=== PATIENT | female | born 1935 | race African-American/Black ===

== ENCOUNTER 2019-07-13 08:18 | Emergency (ER) | payer OTHER ==
[~2019-07-13] VITALS: Ht 170.2 cm; Wt 73.0 kg
[2019-07-13 09:04] LABS: BASOPHILS % 1.2 % (0.0-2.0); EOSINOPHILS % 2.9 % (0.0-5.0); HEMOGLOBIN. 11.9 g/dL (12.0-16.0); LYMPHOCYTES % 26.1 % (20.0-50.0); MEAN CORPUSCULAR HEMOGLOBIN 28.2 pg (28.0-32.0); MEAN CORPUSCULAR VOLUME 85.1 fL (81.0-99.0); MEAN PLATELET VOLUME 7.5 fl (7.4-10.4); MONOCYTES % 6.3 % (2.0-8.0); NEUTROPHILS % 63.5 % (40.0-76.0); PLATELET 121 x1000/uL (130-400); RED BLOOD CELL COUNT 4.23 mill/uL (4.2-5.4); RED CELL DISTRIBUTION WIDTH 13.9 % (11.6-14.6)
[2019-07-13 09:23] LABS: CHLORIDE 111 mEq/L (98-107)
[2019-07-13] MEDS ORDERED: LEVOFLOXACIN 750MG PREMIX 150 ML IV ONE (09:30)
[2019-07-13 11:59] VITALS: BP 132/79
== END 2019-07-13 12:12 | disposition short-term general hospital (02) ==
LOC: ER 08:18
DX: J18.9 Pneumonia, unspecified organism (principal); R06.02 Shortness of breath; I25.10 Atherosclerotic heart disease of native coronary artery without angina pectoris; I11.9 Hypertensive heart disease without heart failure; Z86.73 Personal history of transient ischemic attack (TIA), and cerebral infarction without residual deficits; Z95.0 Presence of cardiac pacemaker
CPT/HCPCS: 36415; 71045; 80053; 83880; 84484; 85025; 93005; 99285; J1956

== ENCOUNTER 2021-08-04 18:59 | Inpatient (IN) | payer OTHER ==
[~2021-08-04] VITALS: Ht 167.6 cm; Wt 61.2 kg
[2021-08-04] MEDS ORDERED: FUROSEMIDE 40MG/4ML VIAL IV ONE (19:15)
[2021-08-04] MEDS ORDERED: CLOPIDOGREL 75MG TABLET PO ONE (19:15)
[2021-08-04] MEDS ORDERED: NITROGLYCERIN OINT 1GM/INCH UDPKT TD ONE (19:15)
[2021-08-04 19:17] LABS: HEMATOCRIT. 33.4 % (36.0-48.0); HEMOGLOBIN. 10.9 g/dL (12.0-16.0); MEAN CORPUSCULAR VOLUME 91.9 fL (81.0-99.0); MEAN PLATELET VOLUME 8.3 fl (7.4-10.4); PLATELET 84 x1000/uL (130-400); RED BLOOD CELL COUNT 3.64 mill/uL (4.2-5.4); RED CELL DISTRIBUTION WIDTH 14.7 % (11.6-14.6)
[2021-08-04 19:20] LABS: CHLORIDE 106 mEq/L (98-107)
[2021-08-04 19:25] LABS: INR 1.3; PROTHROMBIN TIME 13.8 sec (9.6-11.0)
[2021-08-04 20:11] LABS: PLATELET ESTIMATE DECREASED
[2021-08-04 20:17] LABS: BG BASE EXCESS 6.1 mmol/L (-2.0-2.0); BG CARBOXYHEMOGLOBIN 1.2 % (0.5-1.5); BG DEOXYHEMOGLOBIN 1.9 % (0.0-5.0); BG FRACTION INSPIRED OXYGEN 100; BG HCO3 ACT 32.7 mmol/L (22.0-26.0); BG METHEMOGLOBIN 0.3 % (0.0-1.5); BG OXYGEN SATURATION 98.1 % (92.0-98.5); BG OXYHEMOGLOBIN 96.6 % (94.0-97.0); BG PCO2 57.3 mmHg (35.0-45.0); BG PH 7.374 (7.350-7.450); BG PO2 108.9 mmHg (75.0-100.0); BG SAMPLE SITE LEFT RADIAL; BG TOTAL HEMOGLOBIN 11.2 g/dL (12.0-18.0); BG VENT MODE MASK - BIPAP
[2021-08-04] MEDS ORDERED: SODIUM POLYSTYRENE SULFONATE 15 G/60 ML BOT PO ONE (21:00)
[2021-08-04] MEDS ORDERED: ALBUTEROL (0.083%) 2.5MG/3ML NEB HHN ONE (21:00)
[2021-08-04] MEDS ORDERED: SODIUM BICARBONATE 8.4% 1 MEQ/ML 50ML SYR IV ONE (21:00)
[2021-08-04] MEDS ORDERED: LEVOFLOXACIN 500MG PREMIX 100 ML IV SCH (21:30)
[2021-08-04] MEDS ORDERED: ONDANSETRON HCL 4MG/2ML INJ IV PRN (21:30)
[2021-08-04] MEDS ORDERED: NITROGLYCERIN 0.4MG TABLET SL SL PRN (21:30)
[2021-08-04] MEDS ORDERED: GUAIFENESIN 200MG/10ML SUGAR FREE UDC PO PRN (21:30)
[2021-08-04] MEDS ORDERED: ZOLPIDEM TARTRATE 5MG TABLET PO PRN (21:30)
[2021-08-04] MEDS ORDERED: CLONIDINE 0.1MG TABLET PO PRN (21:30)
[2021-08-04] MEDS ORDERED: TRAMADOL 50MG TABLET PO PRN (21:30)
[2021-08-04] MEDS ORDERED: IPRATROPIUM/ALBUTEROL 0.5-3(2.5)MG/3ML NEB HHN SCH (21:30)
[2021-08-04] MEDS ORDERED: DOCUSATE SODIUM 100MG CAPSULE PO PRN (21:30)
[2021-08-04] MEDS ORDERED: IPRATROPIUM/ALBUTEROL 0.5-3(2.5)MG/3ML NEB NEB PRN (21:30)
[2021-08-04] MEDS ORDERED: MAGNESIUM/ALUMINUM HYDROXIDE/SIMETHICONE 30ML UDC PO PRN (21:30)
[2021-08-04] MEDS ORDERED: ACETAMINOPHEN 325MG TABLET PO PRN ×2 (21:30)
[2021-08-04] MEDS ORDERED: ENOXAPARIN 40MG/0.4ML SYR SUBCUT SCH (21:45)
[2021-08-04 21:56] LABS: FOLIC ACID (FOLATE) SERUM 16.5 ng/mL (>5.38)
[2021-08-04] MEDS: METHYLPREDNISOLONE SOD SUCC 125 MG/2 ML VIAL IV SCH (22:00)
[2021-08-04 23:10] LABS: CREATINE KINASE MB FRACTION 2.1 ng/mL (0.5-3.6)
[2021-08-05] MEDS ORDERED: SODIUM POLYSTYRENE SULFONATE 15 G/60 ML BOT PO SCH (00:15)
[2021-08-05] MEDS: IPRATROPIUM/ALBUTEROL 0.5-3(2.5)MG/3ML NEB HHN SCH ×3 (04:54→20:08)
[2021-08-05 05:01] LABS: BASOPHILS % 0.1 % (0.0-2.0); HEMATOCRIT. 29.8 % (36.0-48.0); HEMOGLOBIN. 9.7 g/dL (12.0-16.0); LYMPHOCYTES % 16.2 % (20.0-50.0); MEAN CORPUSCULAR HEMOGLOBIN 29.8 pg (28.0-32.0); MEAN CORPUSCULAR VOLUME 91.3 fL (81.0-99.0); MONOCYTES % 1.3 % (2.0-8.0); NEUTROPHILS % 82.4 % (40.0-76.0); PLATELET 74 x1000/uL (130-400); RED BLOOD CELL COUNT 3.26 mill/uL (4.2-5.4); RED CELL DISTRIBUTION WIDTH 14.3 % (11.6-14.6)
[2021-08-05 05:07] LABS: CHLORIDE 105 mEq/L (98-107)
[2021-08-05 05:13] LABS: PHOSPHORUS 4.5 mg/dL (2.5-4.9)
[2021-08-05 05:16] LABS: CREATINE KINASE 29 IU/L (26-192)
[2021-08-05 05:20] LABS: CREATINE KINASE MB FRACTION 2.5 ng/mL (0.5-3.6)
[2021-08-05] MEDS: METHYLPREDNISOLONE SOD SUCC 125 MG/2 ML VIAL IV SCH (06:00)
[2021-08-05 08:00] VITALS: BP_SYST 119; BP_SYST 126; BP_DIAS 62; BP_DIAS 67
[2021-08-05] MEDS: CARVEDILOL 3.125 MG TABLET PO SCH ×2 (11:24→18:02)
[2021-08-05] MEDS: ZINC SULFATE 220 MG ( 50 ) CAPSULE PO SCH (11:24)
[2021-08-05] MEDS: FAMOTIDINE 20MG TABLET PO SCH (11:25)
[2021-08-05] MEDS: ASCORBIC ACID 500 MG TABLET PO SCH ×2 (11:25→22:14)
[2021-08-05] MEDS: CLOPIDOGREL 75MG TABLET PO SCH (11:25)
[2021-08-05] MEDS: CHOLECALCIFEROL (D3) 1000 UNIT TABLET PO SCH (11:25)
[2021-08-05] MEDS: FUROSEMIDE 40MG/4ML VIAL IVP SCH ×2 (11:26→22:14)
[2021-08-05 11:29] VITALS: BP 142/77
[2021-08-05 12:00] VITALS: BP_SYST 117; BP_SYST 126; BP_DIAS 58; BP_DIAS 61
[2021-08-05] MEDS ORDERED: NALOXONE HCL 0.4MG/ML VIAL IV PRN (15:00)
[2021-08-05 16:00] VITALS: BP 126/61
[2021-08-05] MEDS: ENOXAPARIN 30MG/0.3ML SYR SUBCUT SCH (22:14)
[2021-08-05] MEDS: LEVOFLOXACIN 250MG PREMIX 50 ML IV SCH (22:47)
[2021-08-05] MEDS ORDERED: LEVOFLOXACIN 250MG PREMIX 50 ML IV SCH (23:00)
[2021-08-06] VITALS: BP 128/64
[2021-08-06] MEDS: IPRATROPIUM/ALBUTEROL 0.5-3(2.5)MG/3ML NEB HHN SCH ×6 (00:25→20:12)
[2021-08-06] MEDS: ACETYLCYSTEINE 100MG/ML 10% VIAL 4ML INH SCH ×3 (00:26→16:26)
[2021-08-06 04:00] VITALS: BP 114/73
[2021-08-06] MEDS: CARVEDILOL 3.125 MG TABLET PO SCH (05:21)
[2021-08-06 08:00] VITALS: BP 128/72
[2021-08-06] MEDS: CLOPIDOGREL 75MG TABLET PO SCH (08:58)
[2021-08-06] MEDS: FUROSEMIDE 40MG/4ML VIAL IVP SCH ×2 (08:58→17:22)
[2021-08-06] MEDS: ASCORBIC ACID 500 MG TABLET PO SCH ×2 (08:58→20:05)
[2021-08-06] MEDS: CHOLECALCIFEROL (D3) 1000 UNIT TABLET PO SCH (08:58)
[2021-08-06] MEDS: FAMOTIDINE 20MG TABLET PO SCH (08:59)
[2021-08-06] MEDS: ZINC SULFATE 220 MG ( 50 ) CAPSULE PO SCH (09:00)
[2021-08-06 10:09] LABS: A/G RATIO 0.5 (0.7-1.7); ALBUMIN 2.9 g/dL (2.9-4.4); ALPHA-1-GLOBULIN 0.4 g/dL (0.0-0.4); ALPHA-2-GLOBULIN 0.7 g/dL (0.4-1.0); BETA GLOBULIN 0.8 g/dL (0.7-1.3); GAMMA GLOBULINS 3.8 g/dL (0.4-1.8); GLOBULIN TOTAL 5.7 g/dL (2.2-3.9); M-SPIKE 3.2 g/dL (Not Observed); TOTAL PROTEIN SERUM 8.6 g/dL (6.0-8.5)
[2021-08-06 12:00] VITALS: BP 115/64
[2021-08-06] MEDS: LISINOPRIL 5MG TABLET PO SCH (12:49)
[2021-08-06] MEDS: SPIRONOLACTONE 25MG TABLET PO SCH (12:49)
[2021-08-06 16:00] VITALS: BP 128/83
[2021-08-06 20:00] VITALS: BP 124/61
[2021-08-06] MEDS: ENOXAPARIN 30MG/0.3ML SYR SUBCUT SCH (20:05)
[2021-08-06] MEDS: LEVOFLOXACIN 250MG PREMIX 50 ML IV SCH (20:05)
[2021-08-07] VITALS: BP 146/80
[2021-08-07] MEDS: IPRATROPIUM/ALBUTEROL 0.5-3(2.5)MG/3ML NEB HHN SCH ×4 (00:14→21:31)
[2021-08-07] MEDS: ACETYLCYSTEINE 100MG/ML 10% VIAL 4ML INH SCH ×2 (00:14→21:31)
[2021-08-07 04:00] VITALS: BP 130/65
[2021-08-07 05:35] LABS: HEMATOCRIT. 30.2 % (36.0-48.0); HEMOGLOBIN. 9.7 g/dL (12.0-16.0); MEAN CORPUSCULAR HEMOGLOBIN 29.6 pg (28.0-32.0); MEAN CORPUSCULAR VOLUME 92.1 fL (81.0-99.0); PLATELET 90 x1000/uL (130-400); RED BLOOD CELL COUNT 3.28 mill/uL (4.2-5.4); RED CELL DISTRIBUTION WIDTH 14.7 % (11.6-14.6)
[2021-08-07] MEDS: FUROSEMIDE 40MG/4ML VIAL IVP SCH ×2 (06:59→17:31)
[2021-08-07 08:00] VITALS: BP 131/64
[2021-08-07] MEDS: ZINC SULFATE 220 MG ( 50 ) CAPSULE PO SCH (08:52)
[2021-08-07] MEDS: ASCORBIC ACID 500 MG TABLET PO SCH ×2 (08:52→20:53)
[2021-08-07] MEDS: SPIRONOLACTONE 25MG TABLET PO SCH (08:52)
[2021-08-07] MEDS: CLOPIDOGREL 75MG TABLET PO SCH (08:52)
[2021-08-07] MEDS: CHOLECALCIFEROL (D3) 1000 UNIT TABLET PO SCH (08:52)
[2021-08-07] MEDS: FAMOTIDINE 20MG TABLET PO SCH (08:53)
[2021-08-07] MEDS: LISINOPRIL 5MG TABLET PO SCH (08:53)
[2021-08-07 12:00] VITALS: BP 141/84
[2021-08-07 16:00] VITALS: BP 141/81
[2021-08-07 17:24] LABS: PLATELET ESTIMATE DECREASED
[2021-08-07 20:00] VITALS: BP 128/67
[2021-08-07] MEDS: ENOXAPARIN 30MG/0.3ML SYR SUBCUT SCH (20:54)
[2021-08-07] MEDS: LEVOFLOXACIN 250MG PREMIX 50 ML IV SCH (20:54)
[2021-08-08] VITALS (7 sets, daily range): BP systolic 118–135; BP diastolic 59–72
[2021-08-08] MEDS: IPRATROPIUM/ALBUTEROL 0.5-3(2.5)MG/3ML NEB HHN SCH ×4 (03:21→15:22)
[2021-08-08] MEDS: FUROSEMIDE 40MG/4ML VIAL IVP SCH ×2 (05:12→17:45)
[2021-08-08] MEDS: ZINC SULFATE 220 MG ( 50 ) CAPSULE PO SCH (09:10)
[2021-08-08] MEDS: FAMOTIDINE 20MG TABLET PO SCH (09:10)
[2021-08-08] MEDS: CLOPIDOGREL 75MG TABLET PO SCH (09:10)
[2021-08-08] MEDS: CHOLECALCIFEROL (D3) 1000 UNIT TABLET PO SCH (09:10)
[2021-08-08] MEDS: ASCORBIC ACID 500 MG TABLET PO SCH (09:10)
[2021-08-08] MEDS: LISINOPRIL 5MG TABLET PO SCH (09:10)
[2021-08-08] MEDS: SPIRONOLACTONE 25MG TABLET PO SCH (09:10)
== END 2021-08-08 20:30 | disposition short-term general hospital (02) | DRG 871 ==
LOC: ER 18:59 → 8WST 21:10 → EDBEDREQ 21:14 → SUPCPDRO 21:14 → EDBEDREQTM 21:14 → EDBEDREQSVC 08-05 05:21 → CANRESERV 08-05 07:24 → ENRESERV 08-05 07:24 → EDBEDREQSVC 08-05 08:35 → ENRESERV 08-05 08:43
PROVIDERS: ADMIT Internal Medicine; ATTEND Internal Medicine
PROC: 5A09357 Assistance with Respiratory Ventilation, Less than 24 Consecutive Hours, Continuous Positive Airway Pressure (ICD-10-PCS; principal; 2021-08-04)
DX: A41.9 Sepsis, unspecified organism (principal); J96.01 Acute respiratory failure with hypoxia; J96.02 Acute respiratory failure with hypercapnia; J18.9 Pneumonia, unspecified organism; E43 Unspecified severe protein-calorie malnutrition; I50.23 Acute on chronic systolic (congestive) heart failure; J44.1 Chronic obstructive pulmonary disease with (acute) exacerbation; E87.0 Hyperosmolality and hypernatremia; J44.0 Chronic obstructive pulmonary disease with (acute) lower respiratory infection; C90.00 Multiple myeloma not having achieved remission; I11.0 Hypertensive heart disease with heart failure; D63.8 Anemia in other chronic diseases classified elsewhere; D69.6 Thrombocytopenia, unspecified; E87.5 Hyperkalemia; E88.09 Other disorders of plasma-protein metabolism, not elsewhere classified; I25.10 Atherosclerotic heart disease of native coronary artery without angina pectoris; I27.29 Other secondary pulmonary hypertension; I08.1 Rheumatic disorders of both mitral and tricuspid valves; Z20.822 Contact with and (suspected) exposure to COVID-19; Z95.0 Presence of cardiac pacemaker; Z86.73 Personal history of transient ischemic attack (TIA), and cerebral infarction without residual deficits; Z88.6 Allergy status to analgesic agent; Z68.21 Body mass index [BMI] 21.0-21.9, adult
CPT/HCPCS: 36415; 36600; 71045; 71250; 80048; 80053; 80061; 82375; 82550; 82553; 82607; 82728; 82746; 82805; 83036; 83540; 83550; 83615; 83735; 83880; 84100; 84155; 84165; 84484; 85025; 87426; 93005; 93306; 93970; 94640; 94644; 94660; 97162; 99291; C1893; J1650; J1940; J1956; J2405; J2930; J3490; J7040; J7608